=== PATIENT | male | born 1950 | race Caucasian/White ===

== ENCOUNTER 2025-09-30 11:05 | Day surgery (SDC) | payer MEDICARE, BC ==
[~2025-09-30] VITALS: Ht 182.9 cm; Wt 93.5 kg
[2025-09-30] VITALS (7 sets, daily range): BP systolic 114–127; BP diastolic 58–67; PULSE 71–74; RESP 14–15; O2SAT 96–98
[~2025-09-30 11:05] MED LIST: AMLO10TA13 PO; ASPI-612 PO; CARV12.53 PO; FERR325T28 PO; PANT-47 PO; POTA-207 PO; ROSU20TA98 PO
[2025-09-30] MEDS ORDERED: PANT40TA54 PO (12:51)
[2025-09-30] MEDS ORDERED: ASPI-1265 PO (12:51)
[2025-09-30] MEDS ORDERED: LACT100C2 PO (12:51)
[2025-09-30] MEDS ORDERED: FURO-150 PO (12:51)
[2025-09-30] MEDS ORDERED: APIX5TAB3 PO (12:51)
[2025-09-30] MEDS ORDERED: MUPI22OI30 TP (12:51)
[2025-09-30] MEDS ORDERED: ACET-890 PO (12:51)
[2025-09-30] MEDS ORDERED: MULT-1085 PO (12:51)
[2025-09-30] MEDS ORDERED: AMIO200T76 PO (12:51)
[2025-09-30] MEDS ORDERED: LOP12.5T PO (12:51)
[2025-09-30] MEDS ORDERED: SENN-360 PO (12:51)
[2025-09-30] MEDS ORDERED: CLOP75TA34 PO (12:52)
[2025-09-30] MEDS ORDERED: ATOR10TA70 PO (12:55)
[2025-09-30] MEDS ORDERED: DOXY-1 PO (12:57)
--- NOTE | 2025-09-30 15:53 | PROGRESS NOTE ---
H&P - Interval Note Providers to CC ~ Patient examined and condition: Yes Interval changes as follows: Paper H and P in chart today. 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 Risks benefits alt d/w pt informed consent disclosed. MONA JEFFRIES MD Sep 30, 2025 15:53
--- NOTE | 2025-09-30 15:56 | PROGRESS NOTE ---
Progress Note - Angio Providers to CC ~ Angio Progress Note: S/p left thoracentesis with 1650 cc dark bloody fluid removed. No complications, EBL from procedure itself was none. Dictated. MONA JEFFRIES MD Sep 30, 2025 15:56
--- NOTE | 2025-09-30 17:37 | RADIOLOGY REPORT ---
THORACENTESIS THERAPEUTIC left Clinical information: PLEURAL EFFUSION, NOT ELSEWHERE CLASSIFIED PROCEDURE: Ultrasound Guided Left side Thoracentesis. PRE-PROCEDURE DIAGNOSIS: Prior CABG POST-PROCEDURE DIAGNOSIS: Same Estimated Blood Loss none The nature, alternatives, and risks were discussed with the patient and informed consent was disclosed. All elements of maximal sterile barrier technique, hand hygiene, skin preparation, and a sterile ultrasound probe cover and gel were utilized. The patient was positioned upright and ultrasound was used to examine the posterior chest. An appropriate position was marked at the skin. After sterile preparation and draping, 1% Lidocaine 10 mL subcutaneous was administered. The left pleural space was entered with a 5 Turk[place] Yueh catheter and approximately 1650 mL of dark bloody fluid was removed.. The patient tolerated the procedure well without apparent acute complications. IMPRESSION: 1. Successful left thoracentesis
== END 2025-09-30 14:40 ==
LOC: SSTAY O 11:05
PROVIDERS: ATTEND Radiology Diagnostic Radiology
DX: J90 Pleural effusion, not elsewhere classified (principal); I12.9 Hypertensive chronic kidney disease with stage 1 through stage 4 chronic kidney disease, or unspecified chronic kidney disease; N18.30 Chronic kidney disease, stage 3 unspecified; I25.119 Atherosclerotic heart disease of native coronary artery with unspecified angina pectoris; E78.5 Hyperlipidemia, unspecified; J44.89 Other specified chronic obstructive pulmonary disease; K21.9 Gastro-esophageal reflux disease without esophagitis; Z87.891 Personal history of nicotine dependence; Z79.01 Long term (current) use of anticoagulants; Z79.82 Long term (current) use of aspirin; Z95.1 Presence of aortocoronary bypass graft
CPT/HCPCS: 32555; C1729